=== PATIENT | female | born 1940 | race Two or more races ===

== ENCOUNTER 2020-04-27 15:09 | Inpatient (IN) | payer OTHER ==
[~2020-04-27] VITALS: Ht 167.6 cm; Wt 77.1 kg
[2020-05-04] MEDS ORDERED: NORVASC2.5 MG PO (09:55)
[2020-05-04] MEDS ORDERED: ROCALTROL0.25 MCG PO (09:56)
[2020-05-04] MEDS ORDERED: LABETALOL HCL100 MG PO (09:56)
[2020-05-04] MEDS ORDERED: ECOTRIN81 MG PO (09:56)
[2020-05-04] MEDS ORDERED: LASIX20 MG PO (09:57)
[2020-05-04] MEDS ORDERED: ZYLOPRIM300 MG PO (09:57)
[2020-05-04] MEDS ORDERED: GLYCOPYRROLATE2 MG PO (09:58)
[2020-05-04] MEDS ORDERED: AVAPRO300 MG PO (09:58)
[2020-05-04] MEDS ORDERED: CENTRUM SILVER1 EAC2 PO (09:59)
[2020-05-04] MEDS ORDERED: OMEGA-31000 MG PO (09:59)
[2020-05-13] MEDS ORDERED: OXYC1TAB9 PO (06:34)
[2020-05-13] MEDS ORDERED: XARELTO10 MG PO (06:34)
[2020-05-13] MEDS ORDERED: INTEGRA PLUS C1 EACH PO (06:34)
[2020-05-13] MEDS ORDERED: BACTRIM DS TAB1 EACH PO (06:34)
== END 2020-05-13 17:22 | DRG 470 ==
LOC: ADM 05-04 07:30 → EDSTATUS 05-04 07:30 → SURH 05-11 07:30 → SURG 05-11 08:06 → O/R 05-11 08:06 → SURH 05-11 10:45 → SURG 05-11 17:21
PROVIDERS: ADMIT Orthopaedic Surgery Sports Medicine; ATTEND Orthopaedic Surgery Sports Medicine
PROC: 0SRC0J9 Replacement of Right Knee Joint with Synthetic Substitute, Cemented, Open Approach (ICD-10-PCS; principal; 2020-05-11 10:45)
DX: M17.11 Unilateral primary osteoarthritis, right knee (principal); I10 Essential (primary) hypertension

== ENCOUNTER 2022-11-11 06:25 | Day surgery (SDC) | payer OTHER ==
[~2022-11-11 06:25] MED LIST: AVAPRO300 MG PO; BACTRIM DS TAB1 EACH PO; CENTRUM SILVER1 EAC2 PO; ECOTRIN81 MG PO; GLYCOPYRROLATE2 MG PO; INTEGRA PLUS C1 EACH PO; LABETALOL HCL100 MG PO; LASIX20 MG PO; NORVASC2.5 MG PO; OMEGA-31000 MG PO; OXYC1TAB9 PO; ROCALTROL0.25 MCG PO; XARELTO10 MG PO; ZYLOPRIM300 MG PO
== END 2022-11-11 11:40 | disposition home or self-care (01) ==
LOC: CIR.AMB 06:25
PROVIDERS: ATTEND Anesthesiology Pain Medicine
DX: M47.896 Other spondylosis, lumbar region (principal); Z91.041 Radiographic dye allergy status; I10 Essential (primary) hypertension; E78.49 Other hyperlipidemia

== ENCOUNTER 2025-09-08 06:00 | Day surgery (SDC) | payer OTHER ==
[2025-08-29 12:29] LABS: BASO % 0.6 % (0.1-1.2); EOS # 0.30 (0.04-0.54); EOS % 3.1 % (0.7-7.0); LYMPH # 1.94 (1.18-3.74); LYMPH % 20.0 % (19.3-53.1); MEAN PLATELET VOLUME 10.90 fl (9.4-12.4); MONO # 0.68 (0.24-0.82); MONO % 7.0 % (4.7-12.5); NEUT # 6.64 (1.56-6.13); NEUT % 68.6 % (34.0-71.1); RED CELL DISTRIBUTION WIDTH 13.9 % (11.6-14.4)
[2025-08-29 12:31] LABS: URINE APPEARANCE Cloudy; URINE BILIRRUBIN Negative (NEGATIVE); URINE BLOOD Trace; URINE COLOR Yellow; URINE GLUCOSE Negative (NEGATIVE); URINE KETONE Negative (NEGATIVE); URINE LEUKOCYTE Negative; URINE NITRATE Negative; URINE UROBILINOGEN 0.2 E.U./dl
[2025-08-29 12:35] LABS: URINE CAST 2.97 uL (0.0-1.40); URINE EPITHELIAL CELLS 183.9 uL (0.0-38.8); URINE RBC 9.0 uL (0.0-20.8); URINE WBC 14.1 uL (0.0-23.2)
[2025-08-29 12:37] LABS: URINE PROTEIN 300 (NEGATIVE)
[2025-08-29 13:05] LABS: INR 0.98
[2025-08-29 13:14] VITALS: BP 150/100
[2025-08-29 13:27] LABS: BUN CREA RATIO 22.0 (7.0-25.0); CREATININE SERUM 3.08 mg/dL (0.55-1.02); GFR 14.42; GLUCOSE FASTING 91.0 mg/dL (65-100); OSMOLALITY SERUM 307.0 MOSM/KG (275-295)
[~2025-09-08] VITALS: Ht 167.6 cm; Wt 73.9 kg
[2025-09-08] MEDS ORDERED: CEFAZOLIN SODIUM 1,000 MG VIAL ONE (06:53)
[2025-09-08] MEDS ORDERED: LIDOCAINE HCL 1%/EPINEPHRINE 20ML VIAL IJ ONE (07:04)
[2025-09-08] MEDS ORDERED: ISOPROPYL ALCOHOL 30 ML OUNCE TOP ONE (07:04)
[2025-09-08] MEDS ORDERED: BUPIVACAINE HCL/MPF 0.5% 30ML VIAL ONE (07:04)
[2025-09-08] MEDS ORDERED: CHLORHEXIDINE GLUCONATE 120 ML BOTTLE TOP ONE (07:04)
== END 2025-09-08 08:00 | disposition home or self-care (01) ==
LOC: SURH 06:00 → CIR.AMB 06:00 → O/R 06:00 → SURH 07:45 → EDSTATUS 07:45 → CIR.AMB 08:00 → O/R 08:00 → SURH 19:30
PROVIDERS: ATTEND Orthopaedic Surgery Sports Medicine
DX: M17.12 Unilateral primary osteoarthritis, left knee (principal); I97.3 Postprocedural hypertension; Y65.8 Other specified misadventures during surgical and medical care; Z53.09 Procedure and treatment not carried out because of other contraindication